=== PATIENT | female | born 1980 | race Caucasian/White ===

== ENCOUNTER 2017-11-23 20:31 | Inpatient (IN) | payer SELFPAY ==
[~2017-11-23] VITALS: Ht 157.5 cm; Wt 76.3 kg
[~2017-11-23 20:31] MED LIST: LISI-334 PO; LISI1TAB7 PO; NAPR-514 PO
--- NOTE | 2017-11-23 21:11 | PHYS DOC ---
Past History Past Medical History: Hypertension Past Surgical History: , Tubal ligation, Other Smoking: Less than 1pk/day, Greater than 1 pack/day Alcohol Use: Occasionally Drug Use: None Adult General Chief Complaint Chief Complaint: MENSTRUAL PAIN/CRAMPS HPI HPI 37-year-old female presents with heavy vaginal bleeding. The patient started to have vaginal bleeding on Sunday and the volume seems to be increasing each day. Today since 3 PM, she has been using one super tampon per hour. She has also had some clots. The blood is bright red. The patient should not be having her menses as she just had her normal cycle 2 weeks ago. This cycle was unremarkable. She denies recent vaginal discharge, foul odor, or pruritus. Patient cannot be because she had a bilateral tubal ligation. She has a history of high blood pressure, but has not been on medication due to lack of insurance. She just got her insurance today. Patient denies any history of bleeding disorders. He has been feeling dizzy and lightheaded this afternoon. She denies shortness of breath or chest pain. Review of Systems Review of Systems Constitutional: Denies fever or chills [] Eyes: Denies change in visual acuity, redness, or eye pain [] HENT: Denies nasal congestion or sore throat [] Respiratory: Denies cough or shortness of breath [] Cardiovascular: No additional information not addressed in HPI [] GI: Denies abdominal pain, nausea, vomiting, bloody stools or diarrhea [] : Vaginal bleeding.[] Musculoskeletal: Denies back pain or joint pain [] Integument: Denies rash or skin lesions [] Neurologic: Denies headache, focal weakness or sensory changes [] Endocrine: Denies polyuria or polydipsia [] All other systems were reviewed and found to be within normal limits, except as documented in this note. Current Medications Current Medications Current Medications Medications (Trade) Dose Ordered Sig/Roxi Start Time Stop Time Status Last Admin Dose Admin Clonidine HCl (Catapres) 0.1 mg 1X ONCE 11/23/17 21:15 11/23/17 21:16 Sodium Chloride 1,000 ml @ 1,000 mls/hr 1X ONCE 11/23/17 21:15 11/23/17 22:14 Allergies Allergies Allergies Coded Allergies Type Severity Reaction Last Updated Verified No Known Drug Allergies 06/20/13 No Physical Exam Physical Exam Constitutional: Well developed, well nourished, no acute distress, non-toxic appearance. [] HENT: Normocephalic, atraumatic, bilateral external ears normal, oropharynx moist, no oral exudates, nose normal. [] Eyes: PERRLA, EOMI, conjunctiva normal, no discharge. [] Neck: Normal range of motion, no tenderness, supple, no stridor. [] Cardiovascular:Heart rate regular rhythm, no murmur [] Lungs & Thorax: Bilateral breath sounds clear to auscultation [] Abdomen: Bowel sounds normal, soft, no tenderness, no masses, no pulsatile masses. [] Skin: Warm, dry, no erythema, no rash. [] Back: No tenderness, no CVA tenderness. [] Extremities: No tenderness, no cyanosis, no clubbing, ROM intact, no edema. [] Neurologic: Alert and oriented X 3, normal motor function, normal sensory function, no focal deficits noted. [] Psychologic: Affect normal, judgement normal, mood normal. : Normal external genitalia, coagulating blood in the vagina, no vaginal wall tears. Unable to determine for sure if blood is coming from the cervical os.[] Current Patient Data Vital Signs Vital Signs Date Time Temp Pulse Resp B/P (MAP) Pulse Ox O2 Delivery O2 Flow Rate FiO2 11/23/17 20:52 98.4 94 18 100 Room Air EKG EKG [] Radiology/Procedures Radiology/Procedures [] Course & Med Decision Making Course & Med Decision Making Pertinent Labs and Imaging studies reviewed. (See chart for details) The patient's labs significant for hemoglobin of 9.6. I've no history for comparison. I discussed this with the patient and she denies any history of chronic anemia. Given this, I discussed with the patient having her admitted for trending of her hemoglobin as she may need a transfusion. This would also gives a chance to further observe her bleeding pattern. She has agreed to admission. I discussed the case with Dr. Escalona and he has accepted her for admission. Dragon Disclaimer Dragon Disclaimer This electronic medical record was generated, in whole or in part, using a voice recognition dictation system. Departure Departure: Referrals: PCP,SAYDA (PCP) MONIK CARDONA DO Nov 23, 2017 21:11
[2017-11-23] MEDS ORDERED: IV NORMAL SALINE 1,000ML 1,000 ML IV ONE (21:15)
[2017-11-23] MEDS ORDERED: cloNIDine HCL 0.1 MG TABLET PO ONE (21:15)
[2017-11-23 21:22] LABS: BASO # 0.3 x10^3/uL (0.0-0.2); BASO % 2 % (0-3); EOS # 0.1 x10^3/uL (0.0-0.7); EOS % 1 % (0-3); HEMATOCRIT 30.8 % (36.0-47.0); HEMOGLOBIN 9.6 g/dL (12.0-15.5); LYMPH # 4.1 x10^3/uL (1.0-4.8); LYMPH % 31 % (24-48); MEAN CORPUSCULAR HEMOGLOBIN 23 pg (25-35); MEAN CORPUSCULAR HGB CONC 31 g/dL (31-37); MEAN CORPUSCULAR VOLUME 75 fL (79-100); MONO # 1.1 x10^3/uL (0.0-1.1); MONO % 8 % (0-9); NEUT # 7.7 x10^3uL (1.8-7.7); NEUT % 58 % (31-73); PLATELET COUNT 502 x10^3/uL (140-400); RED BLOOD COUNT 4.14 x10^6/uL (3.50-5.40); RED CELL DISTRIBUTION WIDTH 19.4 % (11.5-14.5); WHITE BLOOD COUNT 13.3 x10^3/uL (4.0-11.0)
[2017-11-23 21:38] LABS: ALBUMIN 3.6 g/dL (3.4-5.0); CALCIUM 9.3 mg/dL (8.5-10.1); CREATININE 1.1 mg/dL (0.6-1.0); GFR 55.9; POTASSIUM 3.1 mmol/L (3.5-5.1); TOTAL BILIRUBIN 0.3 mg/dL (0.2-1.0); TOTAL PROTEIN 7.2 g/dL (6.4-8.2)
[2017-11-23 21:41] LABS: PLT ESTIMATE INCREASED (ADEQUATE)
[2017-11-23 21:42] LABS: ANISOCYTOSIS MOD; MICROCYTOSIS MOD; OVALOCYTES OCC; POIKILOCYTOSIS SLIGHT
[2017-11-23 21:43] LABS: HYPOCHROMIA MOD
[2017-11-24 00:16] VITALS: BP 169/100
[2017-11-24] MEDS ORDERED: cloNIDine HCL 0.1 MG TABLET PO PRN (00:45)
[2017-11-24] MEDS ORDERED: POTASSIUM CHLORIDE 20 MEQ TABLET.ER. PO ONE (01:00)
[2017-11-24 05:32] VITALS: BP 154/95
[2017-11-24 06:40] LABS: BASO # 0.1 x10^3/uL (0.0-0.2); BASO % 1 % (0-3); EOS # 0.2 x10^3/uL (0.0-0.7); EOS % 2 % (0-3); HEMATOCRIT 27.2 % (36.0-47.0); HEMOGLOBIN 8.6 g/dL (12.0-15.5); LYMPH # 3.1 x10^3/uL (1.0-4.8); LYMPH % 28 % (24-48); MEAN CORPUSCULAR HEMOGLOBIN 23 pg (25-35); MEAN CORPUSCULAR HGB CONC 31 g/dL (31-37); MEAN CORPUSCULAR VOLUME 74 fL (79-100); MONO # 0.9 x10^3/uL (0.0-1.1); MONO % 8 % (0-9); NEUT % 62 % (31-73); PLATELET COUNT 450 x10^3/uL (140-400); RED BLOOD COUNT 3.67 x10^6/uL (3.50-5.40); RED CELL DISTRIBUTION WIDTH 18.7 % (11.5-14.5); WHITE BLOOD COUNT 11.3 x10^3/uL (4.0-11.0)
[2017-11-24 06:54] LABS: ALBUMIN 3.1 g/dL (3.4-5.0); CALCIUM 8.7 mg/dL (8.5-10.1); CREATININE 0.8 mg/dL (0.6-1.0); GFR 80.7; POTASSIUM 3.9 mmol/L (3.5-5.1); TOTAL BILIRUBIN 0.6 mg/dL (0.2-1.0); TOTAL PROTEIN 6.3 g/dL (6.4-8.2)
[2017-11-24 11:00] VITALS: BP 134/84
[2017-11-24] MEDS ORDERED: METOCLOPRAMIDE HCL 10 MG/2 ML VIAL. IV PRN (12:30)
[2017-11-24] MEDS ORDERED: FERR325T14 PO (14:25)
[2017-11-24] MEDS ORDERED: ASCO500T3 PO (14:25)
--- NOTE | 2017-11-24 15:31 | SSS ---
ADMIT DATE: HISTORY OF PRESENT ILLNESS: The patient is a 37-year-old female patient who came to the Emergency Room complaining of being dizzy and lightheaded. She has also heavy vaginal bleeding that started last Sunday and the volume seems to be increasing each day. Yesterday around 3:00 p.m., she has been using 1 super tampons per hour, she has also had some clots. The blood was bright red. The patient should not be having her menses as she just had her normal cycle 2 weeks ago and the cycle was unremarkable. She denies recent vaginal discharge or foul odor or pruritus. The patient cannot be because she had bilateral tubal ligation. She has a history of high blood pressure but has not been on any medication due to lack of insurance. She just got her insurance yesterday. She denied any history of bleeding disorder and has been feeling dizzy and lightheaded. Denied any shortness of breath or chest pain. She apparently was given a liter of fluid in the Emergency Room and was admitted for observation. Her hemoglobin on admission was 9.6 and hematocrit was 30.8. Her MCV is low at 75 and she had thrombocytosis. Since admission, she has had no further episode of vaginal bleeding, has had no further episodes of dizziness and lightheadedness and when I saw her this afternoon, she was feeling fine, denied any complaint. She has been up and about without feeling dizzy or lightheaded and she expressed her desire to be discharged. PAST MEDICAL HISTORY: Her past medical history is significant for hypertension. PAST SURGICAL HISTORY: Past surgical history is significant for 2 C-sections and tubal ligation. ALLERGIES: She has no known drug allergies. MEDICATIONS: She is currently on no medication. FAMILY HISTORY: She has 1 older brother who has hypertension and depression. Her mother at age 57 as a complication of surgery for gallbladder. She is also known to have hypertension and diabetes. Father is alive at the age of 67. He is known to have type 2 diabetes, hypertension, and COPD. SOCIAL HISTORY: She is , has 1 daughter and 1 son. She smokes a pack a day. She drinks alcohol occasionally. She does not use any drugs and currently works for [employer]. REVIEW OF SYSTEMS: The patient denied any blurring of vision, cataract, glaucoma or macular degeneration. Denied any earache, tinnitus or sensorineural deafness. Denied any nosebleeds, stuffy nose or postnasal drip. Denied any sore throat, sore tongue, toothache, hoarseness of voice or difficulty swallowing. Denied any nausea, vomiting, diarrhea or constipation. Denied any hematemesis, melena or hematochezia. Denied any dysuria, frequency or hematuria; however, she did complain of excessive vaginal bleeding that has stopped since she was admitted to the hospital. Denied any chest pain, shortness of breath, orthopnea, paroxysmal nocturnal dyspnea. Denied any cough, phlegm or hemoptysis. Denied any chills, rigors or fever. Has had no further dizziness or lightheadedness. PHYSICAL EXAMINATION: GENERAL: When I examined her, she looked well, slightly pale, but no jaundice, cyanosis, or thyromegaly. No jugular venous distension. No lower limb edema. VITAL SIGNS: Her heart rate was 63, blood pressure was 134/84, temperature was 98.7, respiratory rate 20, and oxygen saturation was 95% on room air. HEENT: Examination of the head, eyes, ear, nose, and throat showed normocephalic, atraumatic. NECK: Supple. HEART: Showed normal first and second sounds. No gallop, rub or murmur. CHEST: Clear to auscultation. No crepitation or rhonchi. ABDOMEN: Distended, soft, nontender. No guarding or rigidity. No organomegaly. Her hernial orifices are intact and bowel sounds normal. NEUROLOGIC: She was awake, alert, responding appropriately. All her cranial nerves are intact. EXTREMITIES: She moves extremities without difficulty. LABORATORY DATA: Her lab work on admission showed a serum sodium 139, potassium 3.1, chloride 103, bicarbonate 27, anion gap of 9, BUN 11, creatinine 1.1, estimated GFR was 60 mL per minute. Her glucose was 90, calcium was 9.3. Total bilirubin, AST, ALT, alkaline phosphatase was normal. Total protein was 7.2, albumin 3.5. Her white cell count was 13,300, hemoglobin 9.6, hematocrit 30.8, MCV 75, and platelet count of 502,000. Her prothrombin time was 9.5, INR of 1, aPTT was 22. Urinalysis showed urine test was negative. ASSESSMENT AND PLAN: The patient was given a liter of fluid together with potassium 40 mEq. She remained stable throughout her stay in the hospital. She has no further episode of vaginal bleeding, denied any further episodes of dizziness or lightheadedness. The patient was advised to make an appointment to see a corrective therapist that she might have dysfunctional uterine bleeding and she might require either treatment with progesterone and/or total abdominal hysterectomy. If this process continues, I will start her on iron and vitamin C to replenish her iron stores. FINAL DISCHARGE DIAGNOSES: Dysfunctional uterine bleeding, blood loss anemia, hypertension; hypokalemia, resolved; acute kidney injury, resolved. BRIONNA COLE MD DR: KIANA/foster JOB#: [id number] / [id number]
== END 2017-11-24 14:39 | disposition home or self-care (01) | DRG 760 ==
LOC: ER 20:31 → 1 SOUTH 23:15 → ER 23:59
PROVIDERS: ADMIT Internal Medicine; ATTEND Internal Medicine
DX: N93.8 Other specified abnormal uterine and vaginal bleeding (principal); N17.9 Acute kidney failure, unspecified; D50.0 Iron deficiency anemia secondary to blood loss (chronic); E87.6 Hypokalemia; F17.210 Nicotine dependence, cigarettes, uncomplicated; I10 Essential (primary) hypertension; D47.3 Essential (hemorrhagic) thrombocythemia; Z81.8 Family history of other mental and behavioral disorders; Z82.49 Family history of ischemic heart disease and other diseases of the circulatory system; Z82.5 Family history of asthma and other chronic lower respiratory diseases; Z83.3 Family history of diabetes mellitus; Z98.891 History of uterine scar from previous surgery; Z98.51 Tubal ligation status
CPT/HCPCS: 36415; 80053; 81025; 85025; 85610; 85730; 96360; 99285-25; J7030